=== PATIENT | male | born 1970 | race Caucasian/White ===

== ENCOUNTER 2024-03-23 14:57 | Emergency (ER) | payer OTHER ==
[~2024-03-23] VITALS: Ht 177.8 cm; Wt 118.2 kg
[2024-03-23 15:19] VITALS: BP 134/92; PULSE 91; RESP 18; TEMP 98.5
[2024-03-23 16:25] LABS: BASOPHILS % (AUTO) 1.3 % (0.0-2.0); EOSINOPHILS % (AUTO) 1.2 % (1.0-6.0); HEMATOCRIT 42.2 % (41-53); HEMOGLOBIN 14.1 g/dL (13.5-17.5); LYMPHOCYTES # (AUTO) 1.8 K/uL (1.0-4.8); LYMPHOCYTES % (AUTO) 20.1 % (22.0-44.0); MEAN CORPUSCULAR HEMOGLOBIN 29.6 pg (26.0-34.0); MEAN CORPUSCULAR HGB CONC 33.5 G/dL (31.0-37.0); MEAN CORPUSCULAR VOLUME 88 fL (80-100); MONOCYTES # (AUTO) 0.6 K/uL (0.1-1.0); MONOCYTES % (AUTO) 7.2 % (2.0-9.0); NEUTROPHILS # (AUTO) 6.2 K/uL (1.8-7.7); NEUTROPHILS % (AUTO) 70.2 % (40.0-70.0); PLATELET COUNT (AUTO) 210 K/uL (150-450); RED BLOOD CELL COUNT(AUTO) 4.78 MIL/uL (4.50-5.90); RED CELL DISTRIBUTION WIDTH 13.3 % (11.5-14.5); WHITE BLOOD COUNT (AUTO) 8.9 K/uL (4.5-11.0)
[2024-03-23 16:34] LABS: CALCIUM, TOTAL 9.9 mg/dL (8.8-10.5); CREATININE 1.72 mg/dL (0.60-1.30)
[2024-03-23 17:12] LABS: APPEARANCE,URINE CLEAR (CLEAR); BILIRUBIN,URINE NEGATIVE (NEGATIVE); COLOR,URINE COLORLESS (YELLOW); GLUCOSE, URINE (UA) NEGATIVE (NEGATIVE); KETONES,URINE NEGATIVE (NEGATIVE); LEUKOCYTE ESTERASE ,URINE NEGATIVE (NEGATIVE); NITRATE,URINE NEGATIVE (NEGATIVE); OCCULT BLOOD,URINE TRACE (NEGATIVE); PROTEIN,URINE NEGATIVE (NEGATIVE); SPECIFIC GRAVITIY, URINE 1.012 (1.003-1.030); UROBILINOGEN,URINE <=1.0 mg/dL (<=1.0)
[2024-03-23 17:22] LABS: BACTERIA,URINE None Seen /HPF (None Seen); RBC,URINE None Seen /HPF (0-2); SQUAMOUS EPITHELIAL CELL,UR None Seen /LPF (None Seen); WBC,URINE None Seen /HPF (0-5)
[2024-03-23] MEDS: KETOROLAC TROMETHAMINE 30 MG/ML VIAL IVP ONE (18:35)
[2024-03-23] MEDS: ONDANSETRON HCL 4 MG/2 ML VIAL IVP ONE (18:35)
[2024-03-23] MEDS ORDERED: IBUP-1493 PO (21:09)
[2024-03-23] MEDS ORDERED: ONDA-104 PO (21:09)
== END 2024-03-23 21:31 | disposition home or self-care (01) ==
LOC: EMS 14:59
DX: N20.9 Urinary calculus, unspecified (principal); R10.9 Unspecified abdominal pain
CPT/HCPCS: 99285; 74176; 96374; 96375; 80048; 81001; 83690; 85025; 36415; J1885; J2405; 81003